=== PATIENT | male | born 1940 ===

== ENCOUNTER 2021-03-20 16:16 | Outpatient (CLI) | payer MEDICARE, OTHER | END 2021-03-20 23:59 | disposition short-term general hospital (02) | LOC: EMS 16:16 | DX: R41.82 Altered mental status, unspecified (principal); S09.90XA Unspecified injury of head, initial encounter; W18.39XA Other fall on same level, initial encounter; Y93.73 Activity, racquet and hand sports; Y92.312 Tennis court as the place of occurrence of the external cause | CPT/HCPCS: A0425; A0427 ==